=== PATIENT | male | born 1965 | race Caucasian/White ===

== ENCOUNTER 2024-10-04 20:23 | Inpatient (IN) | payer OTHER ==
[2024-10-04] VITALS (12 sets, daily range): BP systolic 80–118; BP diastolic 30–77
[~2024-10-04] VITALS: Ht 177.8 cm; Wt 131.0 kg
[~2024-10-04 20:23] MED LIST: AMOXICILLIN500 MG PO; CORTISPORIN OTI10 ML AS; DEPO-MEDROL40 MG/ML IM; MEDDOSEPAK PO; TRIAMCINOLON0.5 % EX
[2024-10-04] MEDS ORDERED: PROMETHAZINE HCL 25 MG/ML AMP IV ONE (21:05)
[2024-10-04] MEDS ORDERED: IPRATROPIUM-Albuterol 0.5MG-2.5MG/3 ML NEB ONE (21:05)
[2024-10-04] MEDS ORDERED: SODIUM CHLORIDE 0.9% 1,000 ML IV ONE ×3 (21:05→21:55)
[2024-10-04 21:31] LABS: BASO% 0.1 % (0-3); HEMATOCRIT 50.7 % (39.0-50.0); HEMOGLOBIN 16.5 g/dl (14.0-18.0); IMMATURE GRANULOCYTES 0.3 % (0.0-5.0); MEAN CELL VOLUME 84.5 fL CALC (80.0-100.0); MEAN CORPUSCULAR HGB 27.5 pG CALC (26.0-32.0); MEAN CORPUSCULAR HGB CONC 32.5 g/dL CAL (32.0-36.0); MONO% 7.4 % (2-13); NEUT# 10.09 thou/uL (1.82-7.42); NEUT% 83.2 % (42-76)
--- NOTE | 2024-10-04 21:45 | NUR ---
PT REPORTS INCREASED CONFUSION AT THIS TIME AND STATES THAT HE FEELS DIZZY AND KD THE ROOM IS SPINNING. PT IS ALERT AND ORIENTED TO SELF, TIME AND PLACE AT THIS TIME. MD NOTIFIED OF PT CHANGE.
[2024-10-04 21:47] LABS: ALBUMIN 3.8 g/dL (3.2-5.0); TOTAL PROTEIN 7.2 g/dL (6.3-8.2)
[2024-10-04 21:48] LABS: BILIRUBIN, TOTAL 1.6 mg/dL (0.2-1.3); CREATININE 2.1 mg/dL (0.7-1.3); POTASSIUM 3.6 mmol/l (3.5-5.1)
[2024-10-04] MEDS ORDERED: DiphenhydrAMINE HCL 50 MG/ML SDV IV ONE (21:50)
[2024-10-04] MEDS ORDERED: Levofloxacin 750 mg Premix 150 ML IV ONE (21:55)
[2024-10-04] MEDS ORDERED: ACETAMINOPHEN 500 MG TAB PO ONE (22:25)
[2024-10-04] MEDS ORDERED: IBUPROFEN 600 MG/TAB PO ONE (22:25)
[2024-10-04] MEDS ORDERED: FAMOTIDINE 10MG/ML 2ML SDV IV PRN (22:40)
[2024-10-04] MEDS ORDERED: ALUM & MAG HYDROX-SIMETHICONE 30 ML PO PRN (22:40)
[2024-10-04] MEDS ORDERED: IBUPROFEN 800 MG/TAB PO PRN (22:40)
[2024-10-04] MEDS ORDERED: ONDANSETRON 4 MG/TAB ODT PO PRN (22:40)
[2024-10-04] MEDS ORDERED: ENOXAPARIN SODIUM 40 MG/0.4 ML SYR SC ONE (22:40)
[2024-10-04] MEDS ORDERED: Polyethylene Glycol 3350 17 GM/PKT PO PRN (22:40)
[2024-10-04] MEDS ORDERED: ACETAMINOPHEN 325 MG/TAB PO PRN (22:40)
[2024-10-04] MEDS ORDERED: ONDANSETRON HCl 4 MG/2 ML SDV IV PRN (22:40)
[2024-10-04] MEDS ORDERED: SODIUM CHLORIDE 0.9% 1,000 ML IV PRN (22:45)
[2024-10-04] MEDS ORDERED: IPRATROPIUM-Albuterol 0.5MG-2.5MG/3 ML NEB PRN (22:45)
--- NOTE | 2024-10-04 23:26 | NUR ---
PT SITTING UP IN BED SPEAKING WITH . PT IS ABLE TO HOLD A CONVERSATION AT THIS TIME AND NO LONGER APPEARS CONFUSED. PT VOICES NO CONCERS AT THIS TIME.
[2024-10-05] VITALS (12 sets, daily range): BP systolic 76–127; BP diastolic 48–84
--- NOTE | 2024-10-05 00:21 | NUR ---
PT REPORT GIVEN TO GABBY SPENCER
--- NOTE | 2024-10-05 01:13 | NUR ---
PT MOVED TO ER ROOM 15
--- NOTE | 2024-10-05 01:15 | NUR ---
RECIEVED REPORT FROM MICAELA IN ER. PT ADMITTED TO MS, TRANSFERRED FROM ER RM6 TO ER RM 15 MS OVERFLOW, VIA WC WEARING MASK, PRECAUTIONS MAINTAINED. PT AT BEDSIDE. PT ALERT X4, ABLE TO MAKE NEEDS KNOWN. RESP EVEN/UNLABORED. LS COARSE THROUGHOUT. PT HAS INTERMITTANT NON-PRODUCTIVE COUGH. BSX4 ACTIVE, PT STATES LBM 2-27-25. 18G TO LAC/SL, FLUSHED WITHOUT RESISTANCE. NO S/S OF INFILTRATION OR REDNESS AT SITE. PT REMAINS AFEBRILE AT THIS TIME. PT AND ORIENTED TO UNIT, ROOM, AND CALL LIGHT, WILL MONITOR.
--- NOTE | 2024-10-05 03:49 | NUR ---
Patient sleeping. No distress noted at this time.
--- NOTE | 2024-10-05 04:00 | NUR ---
PT RESTING IN BED WITH EYES CLOSED. PT REMAINS AFEBRILE, VSS, RESP EVEN/UNLABORED. NO DISTREE NOTED AT THIS TME. PT REMAINS AT BS. CALL LIGHT IN REACH. WILL MONITOR.
[2024-10-05 05:36] LABS: BASO% 0.1 % (0-3); HEMATOCRIT 44.8 % (39.0-50.0); IMMATURE GRANULOCYTES 1.5 % (0.0-5.0); LYMPH% 12.1 % (15-41); MEAN CELL VOLUME 86.3 fL CALC (80.0-100.0); MEAN CORPUSCULAR HGB 27.7 pG CALC (26.0-32.0); MEAN CORPUSCULAR HGB CONC 32.1 g/dL CAL (32.0-36.0); MONO% 6.7 % (2-13); NEUT# 8.14 thou/uL (1.82-7.42); NEUT% 79.6 % (42-76); RED BLOOD COUNT 5.19 mill/uL (4.70-6.10); RED CELL DISTRI WIDTH 13.4 % (11.5-15.5)
[2024-10-05 05:45] LABS: HEMOGLOBIN 14.4 g/dl (14.0-18.0)
[2024-10-05 05:48] LABS: CREATININE 2.2 mg/dL (0.7-1.3); POTASSIUM 3.9 mmol/l (3.5-5.1)
--- NOTE | 2024-10-05 06:00 | NUR ---
PT IN BED RESTING, RESP EVEN/UNLABORED, CONTINUES WITH NON-PRODUCTIVE COUGH. PT AFEBRILE, SA02@97% RA. PT DENIES CP, SOB OR DISTRESS AT THIS TIME. CALL LIGHT IN REACH. WILL MONITOR.
[2024-10-05] MEDS ORDERED: methylPREDNISolone Sod Succ 40 MG/ML SDV IV SCH (08:00)
--- NOTE | 2024-10-05 08:00 | NUR ---
PT IS LAYING IN BED ASLEEP. PT IS EASILY AROUSABLE. CALL LIGHT IN REACH.
[2024-10-05] MEDS ORDERED: OSELTAMIVIR PHOSPHATE 75 MG/TAB CAP PO SCH (09:00)
--- NOTE | 2024-10-05 09:51 | NUR ---
REPORTGIVEN TO ELISSA EGAN ON PHONE PRIOR.PT BROUGHT UP VIA WHEELCHAIR BY MYSELF. HANDOFF TO ELISSA EGAN AT BEDSIDE.
--- NOTE | 2024-10-05 09:55 | NUR ---
PT ARRIVED TO THE UNIT VIA WC, PT IS A&O X3, PT AMBULATED FROM THE WC TO THE BEDSIDE SCALE AND TO THE BED WITH A STRONG STEADY GAIT, NORMAL S1 S2 HEART SOUNDS, RESP. EVEN AND UNLABORED, WHEEZES THROUGHOUT LUNGS, ABD DISTENDED AND SOFT WITH ACTIVE BOWEL SOUNDS, 18G LAC IV WITH FLUIDS INFUSINGS AT PRESCRIBED RATE, STRONG RADIAL AND PEDAL PULSES, PT ORIENTED TO THE ROOM AND CALL ALVARES SYSTEM, SAFETY MEASURES REINFORCED, CALL ALVARES WITHIN REACH
--- NOTE | 2024-10-05 10:40 | NUR ---
No part taken in the care of this patient. ER chart accessed in order to depart.
--- NOTE | 2024-10-05 12:00 | NUR ---
PT LAYING IN BED RESTING TALKING TO HIS WHO IS AT BEDSIDE, LABS REVIEWED WITH PT AND PER PT'S REQUEST, PT DENIES ANY OTHER NEEDS AT THIS TIME, CALL ALVARES WITHIN REACH
--- NOTE | 2024-10-05 16:00 | NUR ---
PT SITTING UP IN THE RECLINER, NO S/S OF DISTRESS, PT DENIES ANY NEEDS AT THIS TIME, CALL ALVARES WITHIN REACH
--- NOTE | 2024-10-05 19:40 | NUR ---
PATIENT OBSERVED IN ROOM IN RECLINER. FAMIOLY AT BED SIDE. BEDSIDE ASSESSMENT COMPLETE. A&O X4. CAN MAKE NEEDS KNOWN NONE NEEDED AT THIS TIME. NO COMPLAINTS OF PAIN AT THIS TIME. UNLABORED RESP.LUNG SOUNDS COARSE ON LEFT SIDE, RIGHT SIDE CLEAR. NON PRODUCTIVE COUGH. ABDOMEN SOFT AND DISTENDED. BED AT LOWEST POSITION CALL LIGHT WITH IN REACH.
[2024-10-05] MEDS ORDERED: OSELTAMIVIR PHOSPHATE 30 MG/CAP PO SCH (21:00)
[2024-10-05] MEDS ORDERED: Levofloxacin 750 mg Premix 150 ML IV SCH (23:00)
[2024-10-05] MEDS ORDERED: AZITHROMYCIN 500 MG in SODIUM CHLORIDE 0.9% 500 ML IV SCH (23:00)
--- NOTE | 2024-10-06 00:35 | NUR ---
PATIENT OBSERVED TO BE RESTING IN BED AWAKE PATIENT CAM MAKE NEEDS KNOWN NONE NEEDED AT THIS TIME. NO COMPLAINTS OF PAIN. BED AT LOWEST POSITION. CALL LIGHT WITH IN REACH.
[2024-10-06 04:18] VITALS: BP 138/86
--- NOTE | 2024-10-06 04:55 | NUR ---
PATIENT OBSERVED TO BE RESTING WITH EYES CLOSED. RESP EVEN AND UNLABORED. NO VISUAL SIGNS OF DISTRESS. BED AT LOWEST POSITION. CALL LIGHT WITH IN REACH,
[2024-10-06 04:58] LABS: BASO% 0.1 % (0-3); BILIRUBIN, TOTAL 1.5 mg/dL (0.2-1.3); HEMATOCRIT 43.5 % (39.0-50.0); HEMOGLOBIN 14.2 g/dl (14.0-18.0); IMMATURE GRANULOCYTES 1.3 % (0.0-5.0); MAGNESIUM 2.7 mg/dL (1.6-2.3); MEAN CELL VOLUME 86.5 fL CALC (80.0-100.0); MEAN CORPUSCULAR HGB 28.2 pG CALC (26.0-32.0); MEAN CORPUSCULAR HGB CONC 32.6 g/dL CAL (32.0-36.0); MONO% 5.6 % (2-13); NEUT# 6.08 thou/uL (1.82-7.42); POTASSIUM 3.9 mmol/l (3.5-5.1); RED BLOOD COUNT 5.03 mill/uL (4.70-6.10); RED CELL DISTRI WIDTH 13.5 % (11.5-15.5)
[2024-10-06 05:13] LABS: ALBUMIN 2.5 g/dL (3.2-5.0); TOTAL PROTEIN 5.3 g/dL (6.3-8.2)
--- NOTE | 2024-10-06 07:00 | NUR ---
Patient resting in bed. Continues with non productive cough. No distress noted.
[2024-10-06 07:50] VITALS: BP 135/85
[2024-10-06] MEDS ORDERED: OSELTAMIVIR PHOSPHATE 75 MG/TAB CAP PO SCH (10:00)
--- NOTE | 2024-10-06 12:00 | NUR ---
Patient sitting up in chair. Plan is to stay one more day in hospital to recieve ATB then discharge possibly tomorrow. No shortness of breath noted.
[2024-10-06 15:20] VITALS: BP 136/93
--- NOTE | 2024-10-06 16:00 | NUR ---
Patient is sleeping in bed. No changes. BP has remained stable.
[2024-10-06 18:32] VITALS: BP 139/91
[2024-10-06 20:00] VITALS: BP 139/91
[2024-10-06] MEDS ORDERED: SODIUM CHLORIDE 0.9% 250 ML IV ONE (21:51)
[2024-10-06] MEDS ORDERED: AZITHROMYCIN 500 MG in SODIUM CHLORIDE 0.9% 250 ML IV SCH (22:00)
[2024-10-07] VITALS: BP 139/91
[2024-10-07 04:00] VITALS: BP 127/84
[2024-10-07 04:36] VITALS: BP 127/84
[2024-10-07 05:33] LABS: HEMATOCRIT 42.4 % (39.0-50.0); HEMOGLOBIN 14.1 g/dl (14.0-18.0); MEAN CELL VOLUME 84.1 fL CALC (80.0-100.0); MEAN CORPUSCULAR HGB CONC 33.3 g/dL CAL (32.0-36.0); RED BLOOD COUNT 5.04 mill/uL (4.70-6.10); RED CELL DISTRI WIDTH 13.6 % (11.5-15.5)
[2024-10-07 06:00] LABS: ALBUMIN 2.4 g/dL (3.2-5.0); CREATININE 0.9 mg/dL (0.7-1.3); MAGNESIUM 2.7 mg/dL (1.6-2.3); POTASSIUM 3.5 mmol/l (3.5-5.1); TOTAL PROTEIN 5.1 g/dL (6.3-8.2)
[2024-10-07 07:04] VITALS: BP 136/90
--- NOTE | 2024-10-07 07:30 | NUR ---
PATIENT AWAKE SITTING UP ON SIDE OF BED. PATIENT A&OX4. BREATHING UNLABORED ON ROOM AIR. IV IN LAC SL;SITE CLEAN AND INTACT. DRY COUGH NOTED. PT DENIES ANY PAIN AT THIS TIME BUT MENTIONED TO HAVE SOME LOWER ABDOMINAL PAIN EARLIER. DENIES ANY N/D/V AT THIS TIME. PERSONAL ITEMS WELL CALL LIGHT NEAR. BED IN LOWEST POSITION. NO NEEDS AT THIS TIME. POC ONGOING.
[2024-10-07] MEDS ORDERED: VIBRAMYCIN100 M2 PO (10:04)
[2024-10-07] MEDS ORDERED: PREDNISONE10 MG PO (10:05)
--- NOTE | 2024-10-07 11:56 | NUR ---
Discharge instructions given. Patient verbalizes understanding of same. Discharged in stable condition via Ambulatory to Home with spouse. All belongings sent with pt.
--- NOTE | 2024-10-08 11:41 | NUR ---
Discharge follow up call completed 10/08/24. Patient states he is doing well but still experiencing pain when coughing. Patient is taking prescribed medication as directed.Patient has a follow up appointment with his PCP this afternoon. No needs or concerns veralized at this time.
== END 2024-10-07 11:56 | disposition home or self-care (01) | DRG 871 ==
LOC: ED 20:23 → ED-I 22:23 → ED 22:43 → ED-I 22:44 → MS2 10-05 08:54
PROVIDERS: Family Medicine; Nurse Practitioner Family; ADMIT Internal Medicine; ATTEND Internal Medicine
DX: A41.9 Sepsis, unspecified organism (principal); J10.00 Influenza due to other identified influenza virus with unspecified type of pneumonia; N17.9 Acute kidney failure, unspecified; I12.9 Hypertensive chronic kidney disease with stage 1 through stage 4 chronic kidney disease, or unspecified chronic kidney disease; N18.9 Chronic kidney disease, unspecified
CPT/HCPCS: J0456; J0696; J1200; J2550